=== PATIENT | female | born 1985 | race Caucasian/White ===

== ENCOUNTER → 2021-06-29 | Outpatient (CLI) | payer OTHER ==
[2021-06-29 08:36] LABS: BASOPHILS ABSOLUTE AUTO 0.05 K/mm3 (0.00-0.23); BASOPHILS PERCENT AUTO 1 % (0-2); EOSINOPHILS PERCENT AUTO 2 % (0-6); Hematocrit 42.7 % (33.0-51.0); Hemoglobin 14.4 g/dL (11.5-16.0); IMMATURE GRAN ABSOLUTE AUTO 0.02 K/mm3 (0.00-0.10); IMMATURE GRAN PERCENT AUTO 0 % (0-1); LYMPHOCYTES ABSOLUTE AUTO 1.69 K/mm3 (0.84-5.20); LYMPHOCYTES PERCENT AUTO 19 % (21-46); MONOCYTES ABSOLUTE AUTO 0.66 K/mm3 (0.16-1.47); MONOCYTES PERCENT AUTO 7 % (4-13); Mean Corpuscular HGB 31.6 pg (26.0-34.0); Mean Corpuscular HGB Conc 33.7 g/dL (31.5-36.5); Mean Corpuscular Volume 94 fL (80-100); Mean Platelet Volume 9.5 fL (9.1-12.4); NEUTROPHILS ABSOLUTE AUTO 6.27 K/mm3 (1.96-9.15); NEUTROPHILS PERCENT AUTO 71 % (41-73); Platelet Count 239 K/mm3 (150-400); RDW Coefficient Variation 12.5 % (11.7-14.2); RDW Standard Deviation 43.3 fL (35.1-46.3); Red Blood Cell Count 4.56 M/mm3 (3.80-5.20); White Blood Cell Count 8.89 K/mm3 (4.00-11.30)
[2021-06-29 08:47] LABS: Alanine Aminotransfer (ALT/SGP 17 U/L (12-78); Albumin, Blood 3.6 g/dL (3.4-5.0); Alk Phos 45 U/L (40-126); Anion Gap 12 mmol/L (6-16); Aspartate Aminotrans (AST/SGOT 9 U/L (12-37); Bilirubin, Total 0.4 mg/dL (0.1-1.0); Blood Urea Nitrogen 13 mg/dL (8-24); Bun/Creatinine Ratio 18.1 (12.0-20.0); CO2, Blood 24 mmol/L (21-32); Calcium, Blood 8.7 mg/dL (8.5-10.1); Chloride, Blood 107 mmol/L (98-108); Creatinine, Blood 0.72 mg/dL (0.40-1.00); Globulin, Blood 3.6 g/dL (2.2-4.0); Glomerular Filtration Rate >60 (60-); Glucose, Blood 81 mg/dL (70-99); Sodium, Blood 143 mmol/L (136-145); Total Protein, Blood 7.2 g/dL (6.4-8.2)
== END | disposition home or self-care (01) ==
LOC: LAB 08:32 → LAB SHORT 08:32
PROVIDERS: Physician Assistant
DX: R11.2 Nausea with vomiting, unspecified (principal)
CPT/HCPCS: 80053; 85025

== ENCOUNTER → 2021-09-13 | Outpatient (CLI) | payer OTHER ==
[2021-09-13 18:39] LABS: BASOPHILS ABSOLUTE AUTO 0.04 K/mm3 (0.00-0.23); BASOPHILS PERCENT AUTO 1 % (0-2); EOSINOPHILS ABSOLUTE AUTO 0.09 K/mm3 (0.00-0.68); EOSINOPHILS PERCENT AUTO 1 % (0-6); Hematocrit 39.9 % (33.0-51.0); Hemoglobin 13.1 g/dL (11.5-16.0); IMMATURE GRAN ABSOLUTE AUTO 0.01 K/mm3 (0.00-0.10); IMMATURE GRAN PERCENT AUTO 0 % (0-1); LYMPHOCYTES ABSOLUTE AUTO 2.64 K/mm3 (0.84-5.20); LYMPHOCYTES PERCENT AUTO 35 % (21-46); MONOCYTES ABSOLUTE AUTO 0.75 K/mm3 (0.16-1.47); MONOCYTES PERCENT AUTO 10 % (4-13); Mean Corpuscular HGB 31.2 pg (26.0-34.0); Mean Corpuscular HGB Conc 32.8 g/dL (31.5-36.5); Mean Corpuscular Volume 95 fL (80-100); Mean Platelet Volume 9.1 fL (9.1-12.4); NEUTROPHILS ABSOLUTE AUTO 4.01 K/mm3 (1.96-9.15); NEUTROPHILS PERCENT AUTO 53 % (41-73); Platelet Count 253 K/mm3 (150-400); RDW Coefficient Variation 12.5 % (11.7-14.2); RDW Standard Deviation 43.4 fL (35.1-46.3); White Blood Cell Count 7.54 K/mm3 (4.00-11.30)
[2021-09-13 18:48] LABS: Alanine Aminotransfer (ALT/SGP 18 U/L (12-78); Albumin, Blood 3.5 g/dL (3.4-5.0); Alk Phos 43 U/L (40-126); Aspartate Aminotrans (AST/SGOT 12 U/L (12-37); Bilirubin, Total 0.3 mg/dL (0.1-1.0); Blood Urea Nitrogen 4 mg/dL (8-24); Bun/Creatinine Ratio 5.6 (12.0-20.0); CO2, Blood 30 mmol/L (21-32); Calcium, Blood 8.5 mg/dL (8.5-10.1); Chloride, Blood 104 mmol/L (98-108); Creatinine, Blood 0.71 mg/dL (0.40-1.00); Globulin, Blood 3.5 g/dL (2.2-4.0); Glomerular Filtration Rate >60 (60-); Glucose, Blood 84 mg/dL (70-99)
[2021-09-13 18:58] LABS: Anion Gap 6 mmol/L (6-16); Potassium, Blood 3.5 mmol/L (3.5-5.5); Sodium, Blood 140 mmol/L (136-145)
== END | disposition home or self-care (01) ==
LOC: LAB SHORT 18:32
PROVIDERS: Family Medicine
DX: R10.9 Unspecified abdominal pain (principal)
CPT/HCPCS: 80053; 83690; 85025

== ENCOUNTER → 2021-09-14 | Outpatient (CLI) | payer OTHER | END | disposition home or self-care (01) | LOC: LAB SHORT 08:12 | DX: R10.9 Unspecified abdominal pain (principal) | CPT/HCPCS: 87338 ==

== ENCOUNTER 2022-03-06 06:35 | Inpatient (IN) | payer OTHER ==
[~2022-03-06] VITALS: Ht 162.6 cm; Wt 65.8 kg
[2022-03-06] MEDS ORDERED: ESCI10 PO (07:16)
[2022-03-06 07:48] LABS: BASOPHILS ABSOLUTE AUTO 0.07 K/mm3 (0.00-0.23); BASOPHILS PERCENT AUTO 1 % (0-2); EOSINOPHILS ABSOLUTE AUTO 0.57 K/mm3 (0.00-0.68); EOSINOPHILS PERCENT AUTO 9 % (0-6); Hematocrit 42.2 % (33.0-51.0); Hemoglobin 13.8 g/dL (11.5-16.0); IMMATURE GRAN ABSOLUTE AUTO 0.01 K/mm3 (0.00-0.10); IMMATURE GRAN PERCENT AUTO 0 % (0-1); LYMPHOCYTES ABSOLUTE AUTO 2.03 K/mm3 (0.84-5.20); LYMPHOCYTES PERCENT AUTO 32 % (21-46); MONOCYTES ABSOLUTE AUTO 0.62 K/mm3 (0.16-1.47); MONOCYTES PERCENT AUTO 10 % (4-13); Mean Corpuscular HGB 31.2 pg (26.0-34.0); Mean Corpuscular HGB Conc 32.7 g/dL (31.5-36.5); Mean Corpuscular Volume 95 fL (80-100); Mean Platelet Volume 9.1 fL (9.1-12.4); NEUTROPHILS ABSOLUTE AUTO 3.13 K/mm3 (1.96-9.15); NEUTROPHILS PERCENT AUTO 49 % (41-73); Platelet Count 260 K/mm3 (150-400); RDW Coefficient Variation 12.3 % (11.7-14.2); Red Blood Cell Count 4.43 M/mm3 (3.80-5.20); White Blood Cell Count 6.43 K/mm3 (4.00-11.30)
[2022-03-06 07:55] LABS: Source, Urine Clean Catch
[2022-03-06 07:59] LABS: Appearance, Urine Clear (Clear); Bilirubin, Urine Neg (Neg); Blood, Urine Neg (Neg); Color, Urine Yellow (P-Yellow); Glucose Qualitative, Urine Neg (Neg); Ketones, Urine 3+ (Neg); Leukocyte Esterase, Urine 1+ (Neg); Nitrite, Urine Neg (Neg); Protein, Urine 1+ (Neg); Urobilinogen, Urine NORM (Normal)
[2022-03-06 08:10] LABS: Red Blood Cells, Urine 0-2 /hpf (0-2)
[2022-03-06 08:11] LABS: Bacteria Few /hpf; Mucus Light (0-Heavy); Squamous Epithelial Cells Mod /hpf (Few)
[2022-03-06 08:19] LABS: Albumin, Blood 3.4 g/dL (3.4-5.0); Albumin/Globulin Ratio 0.9 (0.8-1.8); Bilirubin, Direct 0.2 mg/dL (0.0-0.3); Bilirubin, Indirect 0.5 mg/dL (0.1-0.7); Bilirubin, Total 0.7 mg/dL (0.1-1.0); Calcium, Blood 8.8 mg/dL (8.5-10.1); Creatinine, Blood 0.67 mg/dL (0.40-1.00); Globulin, Blood 3.6 g/dL (2.2-4.0); Potassium, Blood 4.1 mmol/L (3.5-5.5)
[2022-03-06 09:11] LABS: Influenza A, PCR NEGATIVE (NEGATIVE); Influenza B, PCR NEGATIVE (NEGATIVE); Resp Syncytial Virus, PCR NEGATIVE (NEGATIVE); SARS-Cov-2 (COVID-19) PCR, MMC NEGATIVE (NEGATIVE)
--- NOTE | 2022-03-06 13:04 | NUR ---
THE PATIENT WAS BROUGHT TO DAY SURGERY FOR HER PROCEDURE
--- NOTE | 2022-03-07 04:51 | NUR ---
MARIO PT HAD SOME ISSUES WITH PAIN BEING MANAGED. DR LIU WAS CONTACTED AND HE ORDERED CHANGES TO LEGAL INSTRUMENTS EXAMINER. PT HAS RESPONDED VERY WELL TO LEGAL INSTRUMENTS EXAMINER CHANGES. PT HAS BEEN ABLE TO SLEEP COMFORTABLY. PT CURRENTLY SLEEPING AND IN NO DISTRESS.
[2022-03-07 06:28] LABS: BASOPHILS ABSOLUTE AUTO 0.03 K/mm3 (0.00-0.23); BASOPHILS PERCENT AUTO 0 % (0-2); EOSINOPHILS ABSOLUTE AUTO 0.16 K/mm3 (0.00-0.68); EOSINOPHILS PERCENT AUTO 2 % (0-6); Hematocrit 33.2 % (33.0-51.0); Hemoglobin 10.7 g/dL (11.5-16.0); IMMATURE GRAN ABSOLUTE AUTO 0.03 K/mm3 (0.00-0.10); IMMATURE GRAN PERCENT AUTO 0 % (0-1); LYMPHOCYTES ABSOLUTE AUTO 2.13 K/mm3 (0.84-5.20); LYMPHOCYTES PERCENT AUTO 22 % (21-46); MONOCYTES ABSOLUTE AUTO 0.97 K/mm3 (0.16-1.47); MONOCYTES PERCENT AUTO 10 % (4-13); Mean Corpuscular HGB 31.2 pg (26.0-34.0); Mean Corpuscular HGB Conc 32.2 g/dL (31.5-36.5); Mean Corpuscular Volume 97 fL (80-100); Mean Platelet Volume 9.4 fL (9.1-12.4); NEUTROPHILS ABSOLUTE AUTO 6.28 K/mm3 (1.96-9.15); NEUTROPHILS PERCENT AUTO 65 % (41-73); Platelet Count 199 K/mm3 (150-400); RDW Coefficient Variation 12.4 % (11.7-14.2); RDW Standard Deviation 43.5 fL (35.1-46.3); Red Blood Cell Count 3.43 M/mm3 (3.80-5.20)
[2022-03-07 07:02] LABS: Bun/Creatinine Ratio 8.1 (12.0-20.0); Calcium, Blood 7.9 mg/dL (8.5-10.1); Creatinine, Blood 0.62 mg/dL (0.40-1.00); Potassium, Blood 3.6 mmol/L (3.5-5.5)
--- NOTE | 2022-03-07 10:15 | NUR ---
03/07/22 1015 Catalina Nayak VERIFICATIONS: EDIT CHART.
--- NOTE | 2022-03-07 17:00 | NUR ---
DR ROJAS AT BEDSIDE, CHANGED 2 OF 3 LAP SITE DRESSINGS D/T DRAINAGE. GAUZE & TEGADERM PLACED.
--- NOTE | 2022-03-07 18:00 | NUR ---
SHIFT SUMMARY NO ACUTE CHANGES THIS SHIFT. DRESSINGS CHANGED PER PREVIOUS NOTE. PAIN MANAGED WITH FENTANYL TRAIN BRAKE OPERATOR PER EMAR. AMBULATED WELL IN HALLWAYS THIS SHIFT. MILD NAUSEA REPORTED AND MEDICATED FOR X1. TOLERATING CLEAR LIQUIDS. DENIES FLATUS & BM. CALLS APPROPRIATELY, WILL REPORT TO ONCOMING RN.
--- NOTE | 2022-03-08 04:26 | NUR ---
SUMMARY PT REPORTS PASSING GAS. NO BM NOTED YET. PT TOLERATING ORDERED DIET. PT PAIN MANAGED WELL. PT HAS AMBULATED WITH GB AND FWW. PT REPORTS SLEEPING OFF AND ON. PT CURRENTLY SLEEPING IN NO DISTRESS. CALL LIGHT IN REACH.
--- NOTE | 2022-03-08 12:37 | NUR ---
POD 2 SMALL BOWEL RESECTION, X3 LAP SITES C/D/I. MODERATE ABDOMINAL PAIN, MEDICATED PER EMAR. TOLERATIING FULL LIQUID DIET WELL, AMBULATING WELL, VOIDING WELL. REPORTS FLATUS, NO BM. REPORT GIVEN TO ROBERTO GONZALES.
--- NOTE | 2022-03-08 13:07 | NUR ---
1237 assumed care of patient. pt sitting in chair. abd lap sites x3 with gauze dressing dry and intact. abd binder in place
--- NOTE | 2022-03-08 17:55 | NUR ---
NAUSEA WITH EMESIS AFTER EATING POPSICLE. NAUSEA RESOLVED AFTER ZOFRAN. PT REPORTS PAIN IS WELL CONTROLLED WITH PO MEDS. AMBULATINGIN ESCOBAR WITH STANDBY ASSIST. ABD BINDER IN PLACE
--- NOTE | 2022-03-09 04:32 | NUR ---
SHIFT SUMMARY A/O X4- IND IN THE ROOM. POD3 LAP SB RESECTION- 3 ABDOMINAL INCIIONS, W/ SCANT AMOUNT OF DRAINAGE. PT REPORTS PAIN WHEN UP OUT OF BED, MEDICATING PER EMAR, PT AMBULATING WELL. VOIDING AND TOLERATED CLEAR LIQ THROUGHOUT THE NIGHT, NO N/V REPORTED/ WILL CONTINUE TO MONITOR AND REPORT TO COMING RN. PAIN WELL CONTTROILL W/ PO PAIN MEDICATI
--- NOTE | 2022-03-09 06:32 | NUR ---
FRAGOSO REMOVED AT 0625 BY [employer], FRAGOSO INTACT. WILL MONITOR FOR POST REMOVAL VOID AND REPORT TO ONCOMING RN.
--- NOTE | 2022-03-10 09:52 | NUR ---
summary pt cont with intermittent nausea. reports passing flatus. states zofran effective, but returns.day rn agrees to follow up with request of possible zofran odt.
[2022-03-10] MEDS ORDERED: HYDR1TAB94 PO (12:59)
[2022-03-10] MEDS ORDERED: ONDA4ODT MM (12:59)
--- NOTE | 2022-03-10 14:00 | NUR ---
DISCHARGE SUMMARY PT A&OX4, VSS/RA, KAYLAH PO, ZOFRAN ODT WORKED WELL FOR PT, VOIDING, AMBULATING INDEPENDENTLY IN ROOM AND HALLWAYS, PAIN MANAGED, IV DC'D. DC INS PROVIDED. PT REP UNDERSTANDING THOSE INSTRUCTIONS. LEFT FLOOR VIA WC WITH ALL PERSONAL POSSESSIONS INCLUDING DC PACKET.
== END 2022-03-10 13:57 | disposition home or self-care (01) | DRG 331 ==
LOC: ER 06:35 → SURS 06:36
PROVIDERS: Student in an Organized Health Care Education/Training Program; ADMIT Surgery
PROC: 0DB80ZZ Excision of Small Intestine, Open Approach (ICD-10-PCS; principal; 2022-03-06 13:30)
DX: K56.1 Intussusception (principal); D17.79 Benign lipomatous neoplasm of other sites; F32.A Depression, unspecified; Z88.1 Allergy status to other antibiotic agents; Z88.8 Allergy status to other drugs, medicaments and biological substances; Z90.89 Acquired absence of other organs; Z98.890 Other specified postprocedural states
CPT/HCPCS: 0241U; 36415; 74177; 80048; 80076; 81001; 81025; 83605; 83690; 83735; 85025; 87086; 88307; 96361; 96374-59; 96375; 96376; 99285-25; A9270; G0378; J0690; J1100; J1650; J1885; J2250; J2270; J2405; J2550; J2704; J2765; J2795; J3010; J7030; J7120; Q9967

== ENCOUNTER 2022-12-13 15:28 | Emergency (ER) | payer OTHER ==
[~2022-12-13] VITALS: Ht 162.6 cm; Wt 65.8 kg
[~2022-12-13 15:28] MED LIST: ESCI10 PO; HYDR1TAB94 PO; ONDA4ODT MM
[2022-12-13 16:04] VITALS: BP 124/105
[2022-12-13 16:35] LABS: BASOPHILS ABSOLUTE AUTO 0.06 K/mm3 (0.00-0.23); BASOPHILS PERCENT AUTO 1 % (0-2); EOSINOPHILS ABSOLUTE AUTO 0.17 K/mm3 (0.00-0.68); EOSINOPHILS PERCENT AUTO 2 % (0-6); Hematocrit 41.8 % (33.0-51.0); Hemoglobin 14.2 g/dL (11.5-16.0); IMMATURE GRAN ABSOLUTE AUTO 0.02 K/mm3 (0.00-0.10); IMMATURE GRAN PERCENT AUTO 0 % (0-1); LYMPHOCYTES ABSOLUTE AUTO 1.46 K/mm3 (0.84-5.20); LYMPHOCYTES PERCENT AUTO 15 % (21-46); MONOCYTES ABSOLUTE AUTO 0.45 K/mm3 (0.16-1.47); MONOCYTES PERCENT AUTO 5 % (4-13); Mean Corpuscular HGB 31.8 pg (26.0-34.0); Mean Corpuscular Volume 94 fL (80-100); Mean Platelet Volume 9.1 fL (9.1-12.4); NEUTROPHILS ABSOLUTE AUTO 7.58 K/mm3 (1.96-9.15); NEUTROPHILS PERCENT AUTO 78 % (41-73); Platelet Count 294 K/mm3 (150-400); RDW Coefficient Variation 12.1 % (11.7-14.2); RDW Standard Deviation 41.7 fL (35.1-46.3); Red Blood Cell Count 4.47 M/mm3 (3.80-5.20); White Blood Cell Count 9.74 K/mm3 (4.00-11.30)
[2022-12-13 16:48] LABS: Source, Urine Clean Catch
[2022-12-13 16:53] LABS: Appearance, Urine Clear (Clear); Bilirubin, Urine Neg (Neg); Blood, Urine 4+ (Neg); Color, Urine Yellow (P-Yellow); Glucose Qualitative, Urine Neg (Neg); Ketones, Urine 4+ (Neg); Leukocyte Esterase, Urine Neg (Neg); Nitrite, Urine Neg (Neg); Protein, Urine 1+ (Neg); Specific Gravity, Urine 1.025 (1.003-1.022); Urobilinogen, Urine NORM (Normal)
[2022-12-13 17:04] LABS: Bacteria Few /hpf; Squamous Epithelial Cells Few /hpf (Few); White Blood Cells, Urine 0-2 /hpf (0-5)
[2022-12-13 17:05] LABS: Influenza A, PCR NEGATIVE (NEGATIVE); Influenza B, PCR NEGATIVE (NEGATIVE); Resp Syncytial Virus, PCR NEGATIVE (NEGATIVE); SARS-Cov-2 (COVID-19) PCR, MMC NEGATIVE (NEGATIVE)
[2022-12-13 17:07] LABS: Albumin, Blood 3.8 g/dL (3.4-5.0); Bilirubin, Total 0.7 mg/dL (0.1-1.0); Bun/Creatinine Ratio 23.8 (12.0-20.0); Creatinine, Blood 0.63 mg/dL (0.40-1.00); Globulin, Blood 3.9 g/dL (2.2-4.0); Potassium, Blood 3.7 mmol/L (3.5-5.5); Total Protein, Blood 7.7 g/dL (6.4-8.2)
[2022-12-13] MEDS ORDERED: ONDA4ODT MM (18:33)
== END 2022-12-13 20:43 | disposition home or self-care (01) ==
LOC: ER 15:28
PROVIDERS: Physician Assistant
DX: A08.4 Viral intestinal infection, unspecified (principal); H57.10 Ocular pain, unspecified eye; Z88.8 Allergy status to other drugs, medicaments and biological substances; Z88.0 Allergy status to penicillin; Z20.822 Contact with and (suspected) exposure to COVID-19; Z87.891 Personal history of nicotine dependence
CPT/HCPCS: 0241U; 80053; 81001; 81025; 83690; 85025; 96374; 99283-25; A9270; J2405; J7030

== ENCOUNTER → 2023-01-11 | Outpatient (CLI) | payer OTHER | END | disposition home or self-care (01) | LOC: LAB SHORT 13:16 → PLD 13:16 → LAB 13:16 | DX: N87.0 Mild cervical dysplasia (principal) | CPT/HCPCS: 88305; 88342 ==

== ENCOUNTER → 2023-01-21 | Outpatient (CLI) | payer OTHER | END | disposition home or self-care (01) | LOC: LAB 08:34 → LAB SHORT 08:34 | DX: N39.0 Urinary tract infection, site not specified (principal) | CPT/HCPCS: 87077; 87086; 87186 ==

== ENCOUNTER 2023-02-10 19:17 | Emergency (ER) | payer OTHER ==
[~2023-02-10] VITALS: Ht 162.6 cm; Wt 65.8 kg
[2023-02-10 19:46] VITALS: BP 102/77
[2023-02-10 19:57] LABS: Source, Urine Clean Catch
[2023-02-10 20:01] LABS: Bilirubin, Urine Neg (Neg); Blood, Urine Neg (Neg); Glucose Qualitative, Urine Neg (Neg); Ketones, Urine Neg (Neg); Leukocyte Esterase, Urine 1+ (Neg); Nitrite, Urine Neg (Neg); Protein, Urine Neg (Neg); Specific Gravity, Urine 1.005 (1.003-1.022); Urobilinogen, Urine NORM (Normal)
[2023-02-10 20:11] LABS: Appearance, Urine Clear (Clear)
[2023-02-10 20:28] LABS: Bacteria Few /hpf; Color, Urine Pale Yellow (P-Yellow); Red Blood Cells, Urine Not Seen /hpf (0-2); Squamous Epithelial Cells Rare /hpf (Few)
[2023-02-10 22:32] LABS: Candida species (DNA Probe) Negative (NEGATIVE); G. vaginalis (DNA Probe) Positive (NEGATIVE); T. vaginalis (DNA Probe) Negative (NEGATIVE)
[2023-02-10] MEDS ORDERED: Flagyl500 MG PO (23:45)
[2023-02-13 03:09] LABS: CHLAMYDIA TRACHOMATIS, NAA Negative (Negative)
== END 2023-02-10 22:07 | disposition home or self-care (01) ==
LOC: ER 19:17
PROVIDERS: Physician Assistant; Student in an Organized Health Care Education/Training Program
DX: A48.8 Other specified bacterial diseases (principal); Z88.8 Allergy status to other drugs, medicaments and biological substances; Z88.0 Allergy status to penicillin
CPT/HCPCS: 81001; 87480; 87491; 87510; 87591; 87660; 99283

== ENCOUNTER → 2023-05-12 | Outpatient (CLI) | payer OTHER ==
[~2023-05-12] MED LIST changes: +Flagyl500 MG PO
== END ==
LOC: LAB SHORT 12:03 → LAB 12:03
DX: N39.0 Urinary tract infection, site not specified (principal)
CPT/HCPCS: 87077; 87086; 87186

== ENCOUNTER → 2023-05-21 | Outpatient (CLI) | payer OTHER | LOC: LAB 10:46 → LAB SHORT 10:46 | PROVIDERS: Advanced Practice Midwife | DX: Z11.3 Encounter for screening for infections with a predominantly sexual mode of transmission (principal) | CPT/HCPCS: 87109 ==

== ENCOUNTER → 2023-05-28 | Outpatient (CLI) | payer OTHER | LOC: LAB SHORT 13:51 → LAB 13:51 | PROVIDERS: Advanced Practice Midwife | DX: Z11.3 Encounter for screening for infections with a predominantly sexual mode of transmission (principal) | CPT/HCPCS: 87563; 87798 ==

== ENCOUNTER 2023-11-21 13:26 | Day surgery (SDC) | payer OTHER ==
[~2023-11-21] VITALS: Ht 162.6 cm; Wt 61.7 kg
[~2023-11-21 13:26] MED LIST changes: +Atropine Sulfate 0.1 MG/ML 10ML SYR ONE; +Glycopyrrolate 0.2 MG/ML 1MLVIAL ONE; +Lactated Ringer's 1,000 ML IV ONE; +Lidocaine 2% 5 ML SDV ONE; +Lidocaine HCl/Pf 1% 5 ML VIAL ONE; +Methylene Blue 1% 100 MG/10 ML VIAL ONE; +Ondansetron HCl 2 MG / ML 2ML Vial ONE; +ePHEDrine Sulfate 50 MG/ML 1ML Injection ONE; +propofoL 50 ML IV ONE
[2023-11-21] MEDS ORDERED: ONDA4ODT (13:44)
[2023-11-21] MEDS ORDERED: ALBU90OI (13:44)
[2023-11-21] MEDS ORDERED: TRAZ50 (13:44)
[2023-11-21] MEDS ORDERED: Lactated Ringer's 1,000 ML IV ONE (14:48)
[2023-11-21 16:29] VITALS: BP 114/75
== END 2023-11-21 16:25 | disposition home or self-care (01) ==
LOC: ORSCSDS 13:26
PROVIDERS: Surgery
PROC: 0DB68ZX Excision of Stomach, Via Natural or Artificial Opening Endoscopic, Diagnostic (ICD-10-PCS; principal; 2023-11-21 15:15)
PROC: 0DB98ZX Excision of Duodenum, Via Natural or Artificial Opening Endoscopic, Diagnostic (ICD-10-PCS; principal; 2023-11-21 15:15)
DX: R11.2 Nausea with vomiting, unspecified (principal); F41.9 Anxiety disorder, unspecified; F32.A Depression, unspecified; Z79.899 Other long term (current) drug therapy
CPT/HCPCS: 88305; 88342; J0461; J2001; J2405; J2704; J7120; Q9968

== ENCOUNTER → 2024-01-28 | Outpatient (CLI) | payer OTHER ==
[~2024-01-28] MED LIST changes: +ALBU90OI; -Atropine Sulfate 0.1 MG/ML 10ML SYR ONE; -Glycopyrrolate 0.2 MG/ML 1MLVIAL ONE; -Lactated Ringer's 1,000 ML IV ONE; -Lidocaine 2% 5 ML SDV ONE; -Lidocaine HCl/Pf 1% 5 ML VIAL ONE; -Methylene Blue 1% 100 MG/10 ML VIAL ONE; +ONDA4ODT; -Ondansetron HCl 2 MG / ML 2ML Vial ONE; +TRAZ50; -ePHEDrine Sulfate 50 MG/ML 1ML Injection ONE; -propofoL 50 ML IV ONE
[2024-01-28 14:37] LABS: Candida glabrata-krusei, PCR NOT DETECTED (NOT DETECT)
[2024-01-28 14:44] LABS: Bacterial Vaginosis PCR Positive (NEGATIVE); Candida Group, PCR DETECTED (NOT DETECT)
== END | disposition home or self-care (01) ==
LOC: LAB SHORT 10:41 → LAB 10:41
PROVIDERS: Advanced Practice Midwife
DX: N76.0 Acute vaginitis (principal)
CPT/HCPCS: 87481; 87661; 87801

== ENCOUNTER → 2024-03-31 | Outpatient (CLI) | payer OTHER | LOC: LAB 09:16 → LAB SHORT 09:16 | DX: N39.0 Urinary tract infection, site not specified (principal) | CPT/HCPCS: 87077; 87086; 87186 ==

== ENCOUNTER → 2024-03-31 | Outpatient (CLI) | payer OTHER ==
[2024-04-01 12:00] LABS: Candida Group, PCR NOT DETECTED (NOT DETECT); Candida glabrata-krusei, PCR NOT DETECTED (NOT DETECT)
[2024-04-01 12:02] LABS: Bacterial Vaginosis PCR Positive (NEGATIVE)
[2024-04-01 12:25] LABS: Chlamydia Trachomatis Cervix NOT DETECTED (NOT DETECT); Neisseria Gonorrhoea Cervix NOT DETECTED (NOT DETECT)
== END ==
LOC: LAB SHORT 09:50 → LAB 09:50
PROVIDERS: Physician Assistant
DX: R10.2 Pelvic and perineal pain (principal)
CPT/HCPCS: 87481; 87491; 87591; 87661; 87801

== ENCOUNTER → 2024-07-17 | Outpatient (CLI) | payer OTHER ==
[2024-07-17 20:30] LABS: Bacterial Vaginosis PCR Negative (NEGATIVE); Candida glabrata-krusei, PCR NOT DETECTED (NOT DETECT)
[2024-07-17 20:57] LABS: Candida Group, PCR DETECTED (NOT DETECT)
[2024-07-17 21:01] LABS: Chlamydia Trachomatis Vaginal NOT DETECTED (NOT DETECT); Neisseria Gonorrhoea Vaginal NOT DETECTED (NOT DETECT)
== END | disposition home or self-care (01) ==
LOC: LAB 18:10 → LAB SHORT 18:10
PROVIDERS: Family Medicine
DX: Z11.3 Encounter for screening for infections with a predominantly sexual mode of transmission (principal); N76.0 Acute vaginitis
CPT/HCPCS: 81515; 87491; 87591

== ENCOUNTER → 2024-07-17 | Outpatient (CLI) | payer OTHER | END | disposition home or self-care (01) | LOC: LAB SHORT 07:54 → PLD 07:54 | DX: D10.39 Benign neoplasm of other parts of mouth (principal); R87.810 Cervical high risk human papillomavirus (HPV) DNA test positive; N84.1 Polyp of cervix uteri | CPT/HCPCS: 88305; 88342 ==

== ENCOUNTER 2024-09-03 08:18 | Day surgery (SDC) | payer OTHER ==
[~2024-09-03] VITALS: Ht 162.6 cm; Wt 67.3 kg
[~2024-09-03 08:18] MED LIST changes: +Lactated Ringer's 1,000 ML IV ONE; +propofoL 50 ML IV ONE
[2024-09-03] MEDS ORDERED: PANT20 (08:33)
[2024-09-03] MEDS ORDERED: Lactated Ringer's 1,000 ML IV ONE (08:56)
--- NOTE | 2024-09-03 09:18 | NUR ---
09/03/24 0917 AMANDA ROJAS PT STATES SIP OF WATER "TO WET MOUTH" [id number] NOTIFIED AND OK TO PROCEED W COLONOSCOPY. END NOTE RDS
[2024-09-03 10:53] VITALS: BP 110/62
== END 2024-09-03 10:53 | disposition home or self-care (01) ==
LOC: ORSCSDS 08:18
PROVIDERS: Specialist
PROC: 0DJD8ZZ Inspection of Lower Intestinal Tract, Via Natural or Artificial Opening Endoscopic (ICD-10-PCS; principal; 2024-09-03 09:45)
DX: R19.4 Change in bowel habit (principal); F50.20 Bulimia nervosa, unspecified; K64.8 Other hemorrhoids; K57.30 Diverticulosis of large intestine without perforation or abscess without bleeding; F41.9 Anxiety disorder, unspecified; K21.9 Gastro-esophageal reflux disease without esophagitis; Z79.899 Other long term (current) drug therapy
CPT/HCPCS: J2704; J7120

== ENCOUNTER 2024-09-07 19:50 | Emergency (ER) | payer OTHER ==
[~2024-09-07] VITALS: Ht 162.6 cm; Wt 65.8 kg
[~2024-09-07 19:50] MED LIST changes: -Lactated Ringer's 1,000 ML IV ONE; +PANT20; -propofoL 50 ML IV ONE
[2024-09-07 20:01] VITALS: BP 115/85
[2024-09-07] MEDS ORDERED: Ketorolac Tromethamine 30mg Vial IM ONE (21:50)
== END 2024-09-07 22:46 | disposition home or self-care (01) ==
LOC: ER 19:50
DX: M79.645 Pain in left finger(s) (principal); M25.522 Pain in left elbow; M79.642 Pain in left hand; W18.30XA Fall on same level, unspecified, initial encounter; Z91.040 Latex allergy status; Z88.8 Allergy status to other drugs, medicaments and biological substances
CPT/HCPCS: 29125; 73080; 73110; 96372-59; 99283-25; J1885

== ENCOUNTER → 2024-09-17 | Outpatient (CLI) | payer OTHER ==
[2024-09-17 16:30] LABS: Chlamydia Trachomatis Vaginal NOT DETECTED (NOT DETECT); Neisseria Gonorrhoea Vaginal NOT DETECTED (NOT DETECT)
== END ==
LOC: LAB 13:20 → LAB SHORT 13:20
PROVIDERS: Family Medicine
DX: T74.21XA Adult sexual abuse, confirmed, initial encounter (principal); Z00.00 Encounter for general adult medical examination without abnormal findings; Z11.59 Encounter for screening for other viral diseases
CPT/HCPCS: 36415; 80053; 83036; 85025; 86592; 86803; 87340; 87389; 87491; 87591